=== PATIENT | male | born 1985 | race Caucasian/White ===

== ENCOUNTER 2019-09-11 09:43 | Emergency (ER) | payer BC ==
--- OUTSIDE RECORDS SUMMARY | 2019-09-11 09:45 | XMS REPORT ---
:1985 Author Organization [facility] t Address [address] [place] [address] Care Team Providers Name Role Phone Unavailable Unavailable Unavailable Problems This patient has no known problems. Allergies, Adverse Reactions, Alerts This patient has no known allergies or adverse reactions. Medications This patient has no known medications. Procedures This patient has no known procedures. Results This patient has no known results.
[2019-09-11] MEDS ORDERED: LIDOCAINE 1% MPF 5 ML VIAL ONE (11:17)
[2019-09-11] MEDS ORDERED: TETANUS & DIPHTHERIA TOX,ADULT 0.5 ML VIAL ONE (11:17)
--- NOTE | 2019-09-11 11:40 | RAD REPORT ---
EXAM DESCRIPTION: RAD - Hand Right 3 View - 09/11/2019 11:34 am CLINICAL HISTORY: injury Laceration, pain COMPARISON: No comparisons FINDINGS: Soft tissue laceration is seen adjacent to the first metacarpal. No foreign body is presen t. No underlying fracture evident. Bony angulation of the fifth metacarpal neck is seen presumably re lated to previous boxer's fracture. Advise correlation with point tenderness in this region.
--- NOTE | 2019-09-11 12:39 | ER ---
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 Bleeding controlled. Coronavirus screen: Proceed with normal triage. Ebola Screen: No symptoms or risks identified at this time. Complicating Factors: There are no complicating factors for this patient. Initial Sepsis Screen: Does the patient meet any 2 criteria? No. Patient's initial sepsis screen is negative. Does the patient have a suspected source of infection? No. Patient's initial sepsis screen is negative. Risk Assessment: Do you want to hurt yourself or someone else? Patient reports no desire to harm self or others. Onset of symptoms was September 11, 2019. 09:59 Method Of Arrival: Ambulatory hb 09:59 Acuity: HALEY 4 hb Historical: - Allergies: 10:01 erythromycin; hb - Home Meds: 10:01 None [Active]; hb - PMHx: 10:01 None; hb - PSHx: 10:01 None; hb - Immunization history:: Adult Immunizations up to date. - Social history:: Smoking status: Patient reports the use of cigarette tobacco products, smokes one-half pack cigarettes per day. Screenin:21 Abuse screen: Denies threats or abuse. Nutritional screening: No deficits noted. Tuberculosis screening: No symptoms or risk factors identified. Fall Risk None identified. Assessment: 10:30 General: Appears in no apparent distress. uncomfortable, Behavior is calm, cooperative. Pain: Complains of pain in heel of right hand and outer aspect of right palm. Neuro: Level of Consciousness is awake, alert, Oriented to person, place, time, situation, Appropriate for age. Cardiovascular: Capillary refill < 3 seconds Patient's skin is warm and dry. Respiratory: Airway is patent Respiratory effort is even, unlabored, Respiratory pattern is regular, symmetrical. GI: No signs and/or symptoms were reported involving the gastrointestinal system. : No signs and/or symptoms were reported regarding the genitourinary system. EENT: No signs and/or symptoms were reported regarding the EENT system. Derm: No signs and/or symptoms reported regarding the dermatologic system. Musculoskeletal: Circulation, motion, and sensation intact. Capillary refill < 3 seconds, Swelling present in heel of right hand and outer aspect of right palm. Injury Description: Laceration sustained to heel of right hand and outer aspect of right palm is contaminated, jagged, 2.6 to 7.5 cm long, bleeding moderately, was sustained 1-2 hours ago. is bleeding moderately. Vital Signs: 09:59 BP 134 / 85; Pulse 79; Resp 16; Temp 97.1; Pulse Ox 100% on R/A; Weight 72.57 kg; hb Height 5 ft. 8 in. (172.72 cm); Pain 6/10; 09:59 Body Mass Index 24.33 (72.57 kg, 172.72 cm) hb ED Course: 09:47 Patient arrived in ED. fj1 10:01 Triage completed. 10:01 Arm band placed on. 10:08 Scout Collier MD is Attending Physician. [facility] 11:00 Patient has correct armband on for positive identification. Bed in low position. Call light in reach. Side rails up X 1. 11:03 Rossana Stephens, RN is Primary Nurse. 11:33 Hand Right 3 View In Process Unspecified. EDMS 12:19 Assist provider with laceration repair using sutures. Set up tray. Performed by Scout Collier MD Patient tolerated well. Irrigation on right hand irrigated with normal saline Patient tolerated well. 12:36 Julien Mercado MD is Referral Physician. [facility] 13:00 Patient did not have IV access during this emergency room visit. 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 Exp: 06/04/2021. Lot #: [id number]. } Route: IM; Site: left deltoid; 12:00 Follow up: Response: No adverse reaction Outcome: 12:38 Discharge ordered by . [facility] 12:55 Discharged to home ambulatory. 12:55 Condition: stable 12:55 Discharge instructions given to patient, Instructed on discharge instructions, follow up and referral plans. medication usage, wound care, Demonstrated understanding of instructions, follow-up care, medications, wound care, Prescriptions given X 1. 12:56 Patient left the ED. hb Signatures: Dispatcher [employer] EDAgustina Buchanan RN RN hb James, Frank fj1 Rossana Stephens RN RN ah Holmes, Maurice, MD MD mh7
--- NOTE | 2019-09-11 12:39 | EDPHYS ---
Physician Documentation [facility] Name: Federico Solorzano Age: 34 yrs Sex: Male : 1985 Arrival Date: 09/11/2019 Time: 09:47 Bed 18 Private MD: ED Physician Scout Collier HPI: 09/10 10:14 This 34 yrs old Male presents to ER via Ambulatory with complaints of mh7 Laceration To Hand. 10:16 The patient has a laceration related to: Kayaking [place] occurred [place], and Thinks he mh7 injured hand on an oyster bed The injury was thinks he injured hand on oyster bed in [place]. The laceration(s) is(are) located on the palmar aspect of right hand. Onset: The symptoms/episode began/occurred today, 1 hour(s) ago. Associated signs and symptoms: Pertinent negatives: deformity, dizziness, heavy bleeding, loss of consciousness, numbness distal to injury, suspected foreign body. Historical: - Allergies: 10:01 erythromycin; hb - Home Meds: 10:01 None [Active]; hb - PMHx: 10:01 None; hb - PSHx: 10:01 None; hb - Immunization history:: Adult Immunizations up to date. - Social history:: Smoking status: Patient reports the use of cigarette tobacco products, smokes one-half pack cigarettes per day. ROS: 10:16 Constitutional: Negative for fever, chills, and weight loss, Eyes: Negative for injury, mh7 pain, redness, and discharge, ENT: Negative for injury, pain, and discharge, Neck: Negative for injury, pain, and swelling, Cardiovascular: Negative for chest pain, palpitations, and edema, Respiratory: Negative for shortness of breath, cough, wheezing, and pleuritic chest pain, Abdomen/GI: Negative for abdominal pain, nausea, vomiting, diarrhea, and constipation, Back: Negative for injury and pain, : Negative for injury, bleeding, discharge, and swelling, Neuro: Negative for headache, weakness, numbness, tingling, and seizure, Psych: Negative for depression, anxiety, suicide ideation, homicidal ideation, and hallucinations, Allergy/Immunology: Negative for hives, rash, and allergies, Endocrine: Negative for neck swelling, polydipsia, polyuria, polyphagia, and marked weight changes, Hematologic/Lymphatic: Negative for swollen nodes, abnormal bleeding, and unusual bruising. Exam: 10:16 Constitutional: This is a well developed, well nourished patient who is awake, alert, mh7 and in no acute distress. Head/Face: Normocephalic, atraumatic. 10:16 Neuro: Awake and alert, GCS 15, oriented to person, place, time, and situation. Cranial nerves II-XII grossly intact. Motor strength 5/5 in all extremities. Sensory grossly intact. Cerebellar exam normal. Normal gait. Psych: Awake, alert, with orientation to person, place and time. Behavior, mood, and affect are within normal limits. 10:16 Musculoskeletal/extremity: Extremities: noted in the palmar aspect of right hand: laceration, ROM: intact in all extremities, Circulation is intact in all extremities. Pulses: are normal with no appreciated deficits, Perfusion: the patient is normally perfused throughout, Perfusion: the extremity is normally perfused throughout, Edema, is not appreciated, Sensation intact. Compartment Syndrome exam of affected extremity: is normal. no pain, no numbness, no tingling, no sensation deficit, no palor, no weak pulses, Joints: All joints appear normal with full range of motion. Tendon exam: specific tendon testing normal through active and passive range of motion 10:16 Skin: 3.5 cm laceration at thenar area of palmar aspect of right hand without active bleeding.. Vital Signs: 09:59 BP 134 / 85; Pulse 79; Resp 16; Temp 97.1; Pulse Ox 100% on R/A; Weight 72.57 kg; hb Height 5 ft. 8 in. (172.72 cm); Pain 6/10; 09:59 Body Mass Index 24.33 (72.57 kg, 172.72 cm) hb Laceration: 12:32 Wound Repair of 4cm ( 1.6in ) subcutaneous laceration to thenar area of palmar aspect mh7 of right hand. Distal neuro/vascular/tendon intact. Anesthesia: Local anesthetic administered with 6 mls of 1% lidocaine. Wound prep: Extensive cleansing with hibiclenz by nurse, Wound irrigation with saline by nurse, Wound margin revised minimally, Wound explored extensively, Copious irrigation. Skin closed with 9 4-0 Prolene using simple sutures and sterile technique. Dressed with Bacitracin, 4x4's. Patient tolerated well. MDM: 10:14 Patient medically screened. 7 12:32 Differential diagnosis: superficial laceration, tendon injury, vascular injury. Data [facility] reviewed: vital signs, nurses notes, radiologic studies, plain films. Data interpreted: Pulse oximetry: on room air is 100 %. Interpretation: normal. 09/11 07:13 Counseling: I had a detailed discussion with the patient and/or guardian regarding: the [facility] historical points, exam findings, and any diagnostic results supporting the discharge/admit diagnosis, radiology results, the need for outpatient follow up, to return to the emergency department if symptoms worsen or persist or if there are any questions or concerns that arise at home. Response to treatment: the patient's symptoms have markedly improved after treatment. 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 Exp: 06/04/2021. Lot #: [id number]. } Route: IM; Site: left deltoid; 12:00 Follow up: Response: No adverse reaction Disposition: 09/11/19 12:38 Discharged to Home. Impression: Laceration of deep palmar arch of right hand. - Condition is Stable. - Discharge Instructions: Laceration Care, Adult, [id number]. - Prescriptions for Keflex 500 mg Oral Capsule - take 1 capsule by ORAL route every 8 hours for 7 days; 21 capsule. - Medication Reconciliation Form, Thank You Letter, Antibiotic Education, Prescription Opioid Use form. - Follow up: Private Physician; When: 2 - 3 days; Reason: Worsening of condition, Re-evaluation by your physician. Follow up: Julien Mercado MD; When: 2 - 3 days; Reason: Worsening of condition, Re-evaluation by your physician. - Problem is new. - Symptoms have improved. Signatures: Dispatcher [employer] EDUT Agustina Rivera, NAVIN RN Rossana Mckenna RN RN Scout Ibanez MD MD 7 Corrections: (The following items were deleted from the chart) 12:56 12:38 09/11/2019 12:38 Discharged to Home. Impression: Laceration of deep palmar arch hb of right hand. Condition is Stable. Forms are Medication Reconciliation Form, Thank You Letter, Antibiotic Education, Prescription Opioid Use. Follow up: Private Physician; When: 2 - 3 days; Reason: Worsening of condition, Re-evaluation by your physician. Follow up: Julien Mercado; When: 2 - 3 days; Reason: Worsening of condition, Re-evaluation by your physician. Problem is new. Symptoms have improved. mh7
[2019-09-11 13:04] VITALS: BP 134/85; TEMP 97.1; O2SAT 100
== END 2019-09-11 12:56 | disposition home or self-care (01) ==
LOC: ER 09:43
PROC: 0JQJ0ZZ Repair Right Hand Subcutaneous Tissue and Fascia, Open Approach (ICD-10-PCS; principal; 2019-09-11)
DX: S61.411A Laceration without foreign body of right hand, initial encounter (principal); F17.210 Nicotine dependence, cigarettes, uncomplicated; W26.8XXA Contact with other sharp object(s), not elsewhere classified, initial encounter; Y93.89 Activity, other specified; Y92.828 Other wilderness area as the place of occurrence of the external cause; Z23 Encounter for immunization; Z88.3 Allergy status to other anti-infective agents
CPT/HCPCS: 90471; 90714; 99284